=== PATIENT | female | born 1985 | race African-American/Black ===

== ENCOUNTER 2021-07-29 16:59 | Emergency (ER) | payer OTHER ==
[~2021-07-29] VITALS: Ht 167.6 cm; Wt 118.2 kg
[2021-07-29 17:35] VITALS: BP 130/71
[2021-07-29] MEDS ORDERED: OXYMETAZOLINE HCL 0.05% 15 ML NASAL SPRAY NASAL ONE (19:00)
== END 2021-07-29 20:03 | disposition home or self-care (01) ==
LOC: EMS 17:00
DX: J34.89 Other specified disorders of nose and nasal sinuses (principal)
CPT/HCPCS: 99282; Z7502; Z7610